=== PATIENT | female | born 1950 | race Caucasian/White ===

== ENCOUNTER → 2023-08-01 | Outpatient (CLI) | payer MEDICARE, SELFPAY ==
--- NOTE | 2023-08-01 13:52 | BI_ITS ---
MAMMOGRAPHY - UNILATERAL DIAGNOSTIC: LEFT BREAST REASON FOR EXAM: Female, 73 years old. Abnormal screening mammogram. 6 month follow-up examination. PERTINENT HISTORY: Aunt with breast cancer. TECHNIQUE: Digital unilateral breast jaylan (3D mammographic acquisition) in the CC and MLO projections. 2-D mediolateral oblique (MLO) and craniocaudad (CC) views of both breasts were obtained. CAD: Full Field Digital Mammography with Computer Added Detection was performed. COMPARISON: Comparison is made with prior outside examination of November 17, 2022. FINDINGS: Breast Composition: The breasts are heterogeneously dense, which may obscure small masses. There are no dominant masses or suspicious calcifications. No other significant abnormalities are identified. There has been no significant change since the prior study. BI/DIAG MAMM W/CAD, UNILAT IMPRESSION: Stable unilateral diagnostic mammogram. One year follow-up mammogram recommended. (A) ASSESSMENT CATEGORY: BIRADS Category 1: Negative. A letter regarding these results will be sent to the patient by the facility within 30 days. Approximately 10% of breast cancers are not detected by mammography. A normal mammogram should not delay biopsy of a clinically suspicious abnormality. Electronically Signed: Naman Zamora MD at 15:24 EDT ,
--- NOTE | 2023-08-01 13:52 | US_ITS ---
STUDY: ULTRASOUND BREAST - LEFT REASON FOR EXAM: Female, 73 years old. Six-month follow-up examination. TECHNIQUE: Axial and longitudinal images of the LEFT breast were performed with a high resolution ultrasound transducer. # OF IMAGES: 50 COMPARISON: Comparison is made with prior mammogram done earlier today. FINDINGS: LEFT Breast: The medial half of the left breast was examined with ultrasound. There is a 6 mm x 6 mm x 3 mm benign appearing lymph node in the retroareolar region at the 9:00 position of the breast at 1 cm from the nipple. US/Breast Limited Unilateral IMPRESSION: Findings in keeping with a 6 mm x 6 mm x 3 mm benign-appearing lymph node at the 9:00 position of the breast at 1 cm from the nipple. ASSESSMENT CATEGORY: BIRADS Category 2: Benign. A letter regarding these results will be sent to the patient by the facility within 30 days. Electronically Signed: Naman Zamora MD at 9:15 EDT ,
== END | disposition home or self-care (01) ==
PROVIDERS: PCP Family Medicine; Referring Provider Family Medicine; Visit Provider Family Medicine
DX: R92.8 Other abnormal and inconclusive findings on diagnostic imaging of breast (principal)
CPT/HCPCS: 76642; 77061; 77065; G0279

== ENCOUNTER 2024-07-15 15:37 | Observation (INO) | payer MEDICARE, OTHER, SELFPAY ==
[2024-07-15] VITALS (12 sets, daily range): BP systolic 94–160; BP diastolic 70–103; PULSE 66–85; RESP 15–20; TEMP 35.8–35.9; O2SAT 97–100; BMI 20.7; BMI 21.1
--- NOTE | 2024-07-15 15:42 | RAD_ITS ---
PROCEDURE: CHEST 1 VIEW (PORTABLE) 07/15/2024 REASON FOR EXAM: STROKE TECHNIQUE: Frontal view of the chest. FINDINGS: Hardware: Heart: Cardiac and mediastinal contours are stable. Lungs: The lungs are clear. Bones: The bones are unremarkable. Other: RAD/Chest 1 View (Portable) IMPRESSION: No Acute Findings. Reading Location: [id number]
--- NOTE | 2024-07-15 15:42 | EKG12_ITS ---
Test Reason : ES/UG Blood Pressure : */* mmHG Vent. Rate : 73 BPM Atrial Rate : 73 BPM P-R Int : 124 ms QRS Dur : 66 ms QT Int : 390 ms P-R-T Axes : 13 -17 10 degrees QTcB Int : 429 ms Sinus rhythm with Premature atrial complexes with Aberrant conduction Otherwise normal ECG Confirmed by MONI MCDANIELS, LASHELL ([id number]), copy editor TYSON LEO ([id number]) on 07/16/2024 1:33:13 PM Referred By: Confirmed By: LASHELL MONTENEGRO MD
[2024-07-15 15:59] LABS: Absolute Lymphocyte Count 1.31 X10^3/uL (0.83-4.51); Absolute Neutrophil Count 4.5 X10^3/uL (2.0-7.7); Basophil# 0.02 X10^3/uL; Basophil% 0.3 % (0-1); Eosinophil# 0.09 X10^3/uL; Eosinophils% 1.4 % (0-5); Hematocrit 40.1 % (37-47); Hemoglobin 13.2 g/dL (12.0-15.0); Lymphocyte # 1.31 X10^3/ul (0.83-4.51); Lymphocyte % 20.3 % (19-41); Mean Corp Hgb Conc 32.9 g/dL (32-36); Mean Corpuscular Hgb 26.2 pg (27.0-32.0); Mean Corpuscular Volume 79.6 fL (81-99); Mean Platelet Vol. 10.6 fl (6.2-12.0); Monocyte# 0.56 X10^3/uL; Monocyte% 8.7 % (0-10); NRBC Flagged by Analyzer 0 % (0-5); Neutrophil # 4.46 X10^3/uL (2.7-7.7); Neutrophil % 69.1 % (47-70); Platelet Count 244 K/mm3 (150-450); RBC Distribution Width CV 15.3 % (11.6-14.6); RBC Distribution Width SD 43.8 fl (35.1-43.9); Red Blood Count 5.04 M/mm3 (4.2-5.4); White Blood Count 6.5 K/mm3 (4.4-11.0)
[2024-07-15 16:17] LABS: Anion Gap 11 (5-15); BUN 16 mg/dL (4-19); BUN/Creat Ratio 18.9 RATIO (10-20); Calcium,Total 9.8 mg/dL (7.6-11.0); Carbon Dioxide 24.1 mmol/L (21.0-32.0); Chloride 99 mmol/L (98-108); Creatinine, Serum 0.86 mg/dL (0.70-1.20); EST Glomerular Filtration Rate 70 (>60); Estimated Creatinine Clearance 49.81 ml/min (50-250); Glucose 175 mg/dL (70-99); Potassium 4.4 mmol/L (3.3-5.1); Sodium Level 134 mmol/L (133-145)
[2024-07-15 16:21] LABS: Prothrombin Time (Protime)PT. 12.9 SECONDS (11.7-14.9)
--- NOTE | 2024-07-15 17:46 | EX.ED.DYSGE1 ---
HPI History of Present Illness Chief Complaint: Dizziness PFSH PFSH Allergy/AdvReac Type Severity Reaction Status Date / Time lincomycin Allergy Severe Anaphylaxis Verified 07/15/24 15:42 sulfamethoxazole (From Allergy Severe Swelling Verified 07/15/24 15:42 Bactrim) trimethoprim (From Bactrim) Allergy Severe Swelling Verified 07/15/24 15:42 iodine Allergy Intermediate Hives Verified 07/15/24 15:42 morphine AdvReac Other Verified 07/15/24 15:42 Social History Smoking Status: Never smoker EXAM Physical Exam Const Vital Signs: 07/15/24 15:37 07/15/24 17:31 07/15/24 17:33 Temperature 96.4 F L Temperature Source Temporal Pulse Rate 66 85 Respiratory Rate 16 Blood Pressure 127/76 H 94/84 H Blood Pressure Mean 93 87 Pulse Ox 99 Oxygen Delivery Method Room Air Room Air MDM MDM Lab Data Attestation: I reviewed the patient's lab results. Lab results narrative: CBC is remarkable for microcytic indices. Coags normal. Electrolyte panel is remarkable glucose of 175 with a normal CO2 2 and anion gap. Labs: Laboratory Results - last 24 hr 07/15/24 15:45 WBC 6.5 RBC 5.04 Hgb 13.2 Hct 40.1 MCV 79.6 L MCH 26.2 L MCHC 32.9 RDW Std Deviation 43.8 RDW Coeff of Haydee 15.3 H Plt Count 244 MPV 10.6 Immature Gran % (Auto) 0.200 Neut % (Auto) 69.1 Lymph % (Auto) 20.3 Graham % (Auto) 8.7 Eos % (Auto) 1.4 Baso % (Auto) 0.3 Absolute Neuts (auto) 4.5 Absolute Lymphs (auto) 1.31 Nucleated RBC % 0 PT 12.9 INR 1.0 APTT 23.0 L Sodium 134 Potassium 4.4 Chloride 99 Carbon Dioxide 24.1 Anion Gap 11 BUN 16 Creatinine 0.86 Estim Creat Clear Calc 49.81 L Est GFR (MDRD) Non-Af 70 BUN/Creatinine Ratio 18.9 Glucose 175 H Calcium 9.8 Radiography Chest X-Ray - ED: 1 View, Read by ED Physician (Independent review interpreted by me at 1744.), Normal, Heart, Lungs, Mediastinum, Bony Structures and No Acute Disease Discharge Plan Triage Chief Complaint: Dizziness ED Provider: Ortiz,Jules Dx/Rx/DC Orders Primary Care Provider: Elier Lindsey Referrals: Elier Lindsey MD [Primary Care Provider] - Print Language: Citizen Of [place]
--- NOTE | 2024-07-15 17:59 | CT_ITS ---
PROCEDURE: STROKE CTA HEAD AND NECK W/CON 07/15/2024 REASON FOR EXAM: NEURO DEFICIT, ACUTE, STROKE SUSPECTED TECHNIQUE: CTA imaging of the head and neck from the aortic arch to the skull vertex with out contrast and with intravenous contrast. Multiplanar and multisequence images were obtained. 3D post processing with reformations, Maximum intensity projection (MIPs) Volume rendering and Shaded surface rendering was provided. CONTRAST: Omnipaque 350 VOLUME: 100 mL Not Provided Gauge IV One or more dose reduction techniques were used (e.g., Automated exposure control, adjustment of the mA and/or kV according to patient size, use of iterative reconstruction technique). COMPARISON: None FINDINGS: Aortic Arch: Normal size and branching pattern. No significant atherosclerotic plaque. Brachiocephalic and Subclavians: Mild atherosclerotic plaque without significant stenosis. RIGHT Carotid: Right CCA: Unremarkable. Right ICA: Mild calcified and soft plaque. Maximum stenosis (NASCET): 0 % Right ECA: Unremarkable. LEFT Carotid: Left CCA: Unremarkable. Left ICA: Mild calcified and soft plaque. Maximum stenosis (NASCET): 0 % Left ECA: Mild calcified and soft plaque. Vertebrals: Codominant. Arise from the subclavians. Both vertebrals form the basilar. RIGHT Vertebral: Fenestration of the distal V2.. LEFT Vertebral: Unremarkable. Anatomy: [place] anatomy is normal. Aneurysm or avm: No intracranial aneurysms or large vascular malformations are identified. Anterior cerebral arteries: Unremarkable: Middle cerebral arteries: Unremarkable. Basilar artery: Unremarkable. Posterior cerebral arteries: Unremarkable. Other major branches of the posterior circulation: Unremarkable. Major venous structures: Unremarkable. Other findings: Neck: No lymphadenopathy. Lungs: Lung apices are clear. Bones: Degenerative changes of the lumbar spine. CT/STROKE CTA Head AND Neck W/Con IMPRESSION: Scattered atherosclerotic calcification without high-grade canal stenosis or ne ural foraminal narrowing. Reading Location: [facility]
--- NOTE | 2024-07-15 17:59 | CT_ITS ---
PROCEDURE: STROKE BRAIN/HEAD WITHOUT CONT 07/15/2024 REASON FOR EXAM: NEURO DEFICIT, ACUTE, STROKE SUSPECTED TECHNIQUE: Head CT without intravenous contrast. Coronal and Sagittal reconstruction series were provided. One or more dose reduction techniques were used (e.g., Automated exposure control, adjustment of the mA and/or kV according to patient size, use of iterative reconstruction technique. COMPARISON: None FINDINGS: No acute intracranial hemorrhage, mass, mass effect, midline shift or pathologic extra-axial fluid collection. Mild parenchymal atrophy with commensurate increase in CSF containing spaces. Bilateral basal ganglia mineralization, likely age related. 1 Patchy white matter hypodensities, patient demographics favor chronic microvascular ischemic changes. Paranasal sinuses and mastoid air cells are clear. The calvarium is grossly intact. CT/STROKE Brain/Head without Cont IMPRESSION: No acute intracranial abnormality; no acute infarct, intracranial hemorrhage or extra-axial collection. Chronic microvascular ischemia and involutional changes. Reading Location: [facility]
--- NOTE | 2024-07-15 18:02 | ED.VIS.STROK ---
HPI History of Present Illness Chief Complaint: Dizziness Detail of Chief Complaint: Balance off, walking into the [place] and bilateral blurred vision Informant: patient and spouse/S.O. Onset/Context/Timing Onset: Today (714) Context: Sudden Onset Timing: Continuous Quality and Location: Positive for Difficulty with Ambulation Onset: 714 Current Severity: Mild Maximum Severity: Severe Worsened by: Nothing Relieved by: Still present Associated Symptoms Associated Symptoms: Positive for Headache (Occipital and neck) and Nausea; Negative for Vomiting or Chest Pain Narrative Narrative: Patient is a 74-year-old woman with history of type 2 diabetes for many years and COVID, states since she looks to the left she has double vision. She states she got out of bed this morning. She had no symptoms. She was walking down the [place] and was having difficulty and was walking into the [place]. She attempted to sit down and read and could not and stopped because of blurred vision. She denied double vision. There is no trouble with speech or swallowing. She denied paresthesia, anesthesia or motor weakness. Triage note was reviewed. She states her heart rate is normally low. She answered low heart rate when I asked her about her blood pressure. Patient apparently was confused and uncertain whether she was really hypotensive or not. states he had to help her walk because she was still having difficulty when they arrived. She states her symptoms have gotten better. She still complaining of occipital headache. Prior similar symptoms: No Recent Illness/Hospitalization: No [facility] Medical History CKD (chronic kidney disease), stage II HLD (hyperlipidemia) HTN (hypertension) Glaucoma Type 2 diabetes mellitus with hyperglycemia Home Medications ?Medication ?Instructions ?Recorded ?Last Taken ?Type calcium 600 mg (as 2 tab PO DAILY 07/15/24 Unknown History carbonate)-vitamin D3 5 mcg (200 unit) tablet (Calcium 600 + D(3)) cholecalciferol (vitamin D3) 50 50 mcg PO DAILY 07/15/24 Unknown History mcg (2,000 unit) tablet (D3 DOTS) empagliflozin 10 mg tablet 10 mg PO DAILY 07/15/24 Unknown History (Jardiance) green tea leaf extract 500 mg 400 mg PO DAILY 07/15/24 Unknown History capsule lisinopril 5 mg tablet 5 mg PO DAILY 07/15/24 Unknown History magnesium oxide 400 mg (241.3 mg 400 mg PO DAILY 07/15/24 Unknown History magnesium) tablet (MagOx) mecobalamin (vitamin B12) 1,000 1,000 mcg PO DAILY 07/15/24 Unknown History mcg chewable tablet metformin 850 mg tablet 850 mg PO Q12H 07/15/24 Unknown History omega 4-iyn-teh-fish oil 300 1 cap PO DAILY 07/15/24 Unknown History mg-1,000 mg capsule (Fish Oil) pyridoxine (vitamin B6) 100 mg 100 mg PO DAILY 07/15/24 Unknown History tablet (Vitamin B-6) simvastatin 20 mg tablet 20 mg PO QHS 07/15/24 Unknown History thiamine HCl (vitamin B1) 250 mg 250 mg PO DAILY 07/15/24 Unknown History tablet (Vitamin B-1) timolol maleate 0.5 % eye drops 1 drp LEFT EYE Q12H 07/15/24 Unknown History zinc gluconate 50 mg tablet 50 mg PO DAILY 07/15/24 Unknown History Allergy/AdvReac Type Severity Reaction Status Date / Time lincomycin Allergy Severe Anaphylaxis Verified 07/15/24 15:42 sulfamethoxazole (From Allergy Severe Swelling Verified 07/15/24 15:42 Bactrim) trimethoprim (From Bactrim) Allergy Severe Swelling Verified 07/15/24 15:42 iodine Allergy Intermediate Hives Verified 07/15/24 15:42 morphine AdvReac Other Verified 07/15/24 15:42 Family History no significant family his Social History household members: spouse Smoking Status: Never smoker ROS ROS ED Constitutional Constitutional ED: Denies chills, fever(s), subjective or sweats Eyes Eyes: Reports blurry vision bilateral; Denies diplopia ENT ENT ED: Denies ear pain, rhinorrhea or sore throat Cardiovascular Cardiovascular: Denies chest pain or palpitations Respiratory/Chest Respiratory/Chest: Denies cough, dyspnea or dyspnea on exertion Gastrointestinal Gastrointestinal: Denies abdominal pain, nausea or vomiting Genitourinary Genitourinary ED: Denies dysuria, hematuria or urinary frequency Musculoskeletal Musculoskeletal: Denies arthralgias, back pain or myalgias Integumentary Denies rash Neurologic Neurologic: Denies headache(s) or weakness Psychiatric Psychiatric: Denies anxiety or depression Endocrine Endocrinology: Denies polydipsia or polyphagia Hematologic/Lymphatic Hematologic/Lymphatic: Denies easy bleeding or easy bruising EXAM Physical Exam Const Vital Signs: 07/15/24 15:37 07/15/24 17:31 07/15/24 17:33 Temperature 96.4 F L Temperature Source Temporal Pulse Rate 66 85 Respiratory Rate 16 Blood Pressure 127/76 H 94/84 H Blood Pressure Mean 93 87 Pulse Ox 99 Oxygen Delivery Method Room Air Room Air 07/15/24 17:59 07/15/24 17:59 07/15/24 18:28 Temperature Temperature Source Pulse Rate 83 80 Respiratory Rate 15 Blood Pressure 120/88 H 138/81 H Blood Pressure Mean 98 100 Pulse Ox 100 99 Oxygen Delivery Method Room Air Room Air Room Air 07/15/24 19:00 07/15/24 19:00 07/15/24 19:30 Temperature Temperature Source Pulse Rate 76 80 Respiratory Rate 16 20 H Blood Pressure 113/103 H 132/76 H Blood Pressure Mean 106 94 Pulse Ox 99 98 Oxygen Delivery Method Room Air Room Air 07/15/24 20:00 07/15/24 20:30 Temperature Temperature Source Pulse Rate 73 74 Respiratory Rate Blood Pressure 160/78 H 160/78 H Blood Pressure Mean 105 105 Pulse Ox 97 Oxygen Delivery Method Positive well nourished and well developed Constitutional Narrative: She appears in no distress. Initial blood pressure was normal. Repeat blood pressure at 1733 was low. Patient has no meningeal findings. General Appearance ED: well developed HEENT Reports moist mucous membranes atraumatic Eyes PERRL and EOMs intact bilaterally Eyes Narrative: There is no nystagmus noted. There is no visual field cut. General Eye ED: Negative for pale conjunctiva or scleral icterus Neck no lymphadenopathy, supple and no JVD Chest Wall inspection of chest normal and palpation of chest normal Resp normal respiratory effort and clear to auscultation bilaterally Cardio no murmurs GI normal to inspection, nondistended, normoactive bowel sounds, soft to palpation, non-tender, non-distended and no masses Back/Spine no CVA tenderness Extremity normal to inspection General Extremety ED: Negative for deformity or edema General Extremity: Negative for deformity or edema Neuro oriented x3 and CN's II-XII intact bilaterally Shelby Coma Scale: document GCS findings Spontaneous Obeys Commands Oriented 15 Sensorium / Orientation: alert Speech: speech normal Motor Exam: strength 5/5 throughout Psych mental status grossly normal Skin no wounds General Skin Exam: Negative for jaundice Lesions: no lesions Rashes: no rashes MDM MDM MDM Narrative Medical decision making narrative: Differential diagnosis would be subarachnoid hemorrhage, ischemic stroke, vertebrobasilar insufficiency, atypical migraine. Stroke team was called in light of her difficulty walking and change in vision which would be consistent with a posterior circulatory issue. Will have nurses check her blood sugar since she is diabetic. This is to rule out hypoglycemia. Lab Data Attestation: I reviewed the patient's lab results. Lab results narrative: CBC is remarkable microcytic indices. Electrolyte panel is unremarkable. Troponin is normal. Glucose is 122. Labs: Laboratory Results - last 24 hr 07/15/24 07/15/24 07/15/24 15:45 18:16 18:20 WBC 6.5 8.2 RBC 5.04 5.13 Hgb 13.2 13.4 Hct 40.1 40.7 MCV 79.6 L 79.3 L MCH 26.2 L 26.1 L MCHC 32.9 32.9 RDW Std Deviation 43.8 43.5 RDW Coeff of Haydee 15.3 H 15.1 H Plt Count 244 256 MPV 10.6 10.5 Immature Gran % (Auto) 0.200 0.400 Neut % (Auto) 69.1 77.7 H Lymph % (Auto) 20.3 14.9 L [place] % (Auto) 8.7 6.2 Eos % (Auto) 1.4 0.6 Baso % (Auto) 0.3 0.2 Absolute Neuts (auto) 4.5 6.3 Absolute Lymphs (auto) 1.31 1.22 Nucleated RBC % 0 0 PT 12.9 12.8 INR 1.0 0.9 APTT 23.0 L 22.3 L Sodium 134 136 Potassium 4.4 4.5 Chloride 99 101 Carbon Dioxide 24.1 23.2 Anion Gap 11 11 BUN 16 16 Creatinine 0.86 0.83 Estim Creat Clear Calc 49.81 L 51.61 Est GFR (MDRD) Non-Af 70 73 BUN/Creatinine Ratio 18.9 19.8 Glucose 175 H 129 H Calcium 9.8 10.1 Troponin T High Sens < 6 Troponin T Hi Sens 2 Hr POC Glucose 122 H 07/15/24 20:25 WBC RBC Hgb Hct MCV MCH MCHC RDW Std Deviation RDW Coeff of Haydee Plt Count MPV Immature Gran % (Auto) Neut % (Auto) Lymph % (Auto) [place] % (Auto) Eos % (Auto) Baso % (Auto) Absolute Neuts (auto) Absolute Lymphs (auto) Nucleated RBC % PT INR APTT Sodium Potassium Chloride Carbon Dioxide Anion Gap BUN Creatinine Estim Creat Clear Calc Est GFR (MDRD) Non-Af BUN/Creatinine Ratio Glucose Calcium Troponin T High Sens Troponin T Hi Sens 2 Hr < 6 POC Glucose Radiography Chest X-Ray - ED: 1 View, Read by ED Physician (Interpreted by me at 1710), Normal, Heart, Lungs, Mediastinum, Bony Structures and No Acute Disease Diagnostic Testing: Clinical Impression(s) from Imaging Studies Chest X-Ray 07/15/24 15:42 IMPRESSION: No Acute Findings. Reading Location: [facility] Brain CT 07/15/24 17:59 IMPRESSION: No acute intracranial abnormality; no acute infarct, intracranial hemorrhage or extra-axial collection. Chronic microvascular ischemia and involutional changes. Reading Location: [facility] Head/Neck CTA 07/15/24 17:59 IMPRESSION: Scattered atherosclerotic calcification without high-grade canal stenosis or neural foraminal narrowing. Reading Location: [facility] CT of the head and neck reveals no high-grade canal stenosis. There is scattered atherosclerotic calcifications noted. EKG Initial EKG: Attestation: I personally reviewed and interpreted this EKG as follows: Interpretation: Sinus Rhythm (Rate is 73. OR interval is under 24 ms. History 6 6 ms. QT durations are 90 ms. Kinta is normal. There are premature atrial beats noted.) Management Discussion w/another healthcare provider: Hospitalist (Dr. Montes De Oca was paged for admission to PCU for central vertigo.), Gyn Physician (Spoke to Dr. Phan the [facility] neurologist. He agrees this is consistent with central vertigo and needs a stroke workup. By the time he completed his exam she was symptom-free.) and Radiologist Discharge Plan Dx/Rx/DC Orders Clinical Impression: Vertigo of central origin, Type 2 diabetes mellitus with hyperglycemia, Glaucoma, Blurred vision, bilateral, Brain TIA Disposition Disposition: Acute Care Hospital [facility] [place] NIHSS NIHSS 1a. Level of Consciousness: 0 - Alert; keenly responsive 1b. LOC Questions: 0 - Answers BOTH questions correctly 1c. LOC Commands: 0 - Performs BOTH tasks correctly 2. Best Gaze: 0 - Normal 3. Visual: 0 - No visual loss 4. Facial Palsy: 0 - Normal symmetrical movements 5a. Left Arm: 0 - No drift; arm holds 90 (or 45) degrees for full 10 seconds 5b. Right Arm: 0 - No drift; arm holds 90 (or 45) degrees for full 10 seconds 6a. Left Le - No drift; leg holds 30-degree position for full 5 seconds 6b. Right Le - No drift; leg holds 30-degree position for full 5 seconds 7. Limb Ataxia: 0 - Absent 8. Sensory: 0 - Normal; no sensory loss 9. Best Language: 0 - No aphasia; normal 10. Dysarthria: 0 - Normal 11. Extinction and Inattention: 0 - No abnormality Total: 0 Stroke Questions Stroke Team Activated: Yes Reviewed Inclusion/Exclusion criteria: Yes IV Thrombolytic Administered: No No contraindications from thrombolytic administration: No
[2024-07-15 18:31] LABS: Absolute Lymphocyte Count 1.22 X10^3/uL (0.83-4.51); Absolute Neutrophil Count 6.3 X10^3/uL (2.0-7.7); Basophil# 0.02 X10^3/uL; Basophil% 0.2 % (0-1); Eosinophil# 0.05 X10^3/uL; Eosinophils% 0.6 % (0-5); Hematocrit 40.7 % (37-47); Hemoglobin 13.4 g/dL (12.0-15.0); Lymphocyte # 1.22 X10^3/ul (0.83-4.51); Lymphocyte % 14.9 % (19-41); Mean Corp Hgb Conc 32.9 g/dL (32-36); Mean Corpuscular Hgb 26.1 pg (27.0-32.0); Mean Corpuscular Volume 79.3 fL (81-99); Mean Platelet Vol. 10.5 fl (6.2-12.0); Monocyte# 0.51 X10^3/uL; Monocyte% 6.2 % (0-10); NRBC Flagged by Analyzer 0 % (0-5); Neutrophil # 6.34 X10^3/uL (2.7-7.7); Neutrophil % 77.7 % (47-70); Platelet Count 256 K/mm3 (150-450); RBC Distribution Width CV 15.1 % (11.6-14.6); RBC Distribution Width SD 43.5 fl (35.1-43.9); Red Blood Count 5.13 M/mm3 (4.2-5.4); White Blood Count 8.2 K/mm3 (4.4-11.0)
[2024-07-15 18:38] LABS: Bedside Glucose 122 mg/dL (74-106)
[2024-07-15] MEDS: DiphenhydrAMINE 50 MG/ML Syringe IV (18:38)
[2024-07-15 18:39] LABS: International Normalized Ratio 0.9; Prothrombin Time (Protime)PT. 12.8 SECONDS (11.7-14.9)
[2024-07-15 18:40] LABS: Partial Thromboplast Time 22.3 Seconds (24.1-36.2)
[2024-07-15 18:52] LABS: Anion Gap 11 (5-15); BUN 16 mg/dL (4-19); BUN/Creat Ratio 19.8 RATIO (10-20); Calcium,Total 10.1 mg/dL (7.6-11.0); Carbon Dioxide 23.2 mmol/L (21.0-32.0); Chloride 101 mmol/L (98-108); Creatinine, Serum 0.83 mg/dL (0.70-1.20); EST Glomerular Filtration Rate 73 (>60); Estimated Creatinine Clearance 51.61 ml/min (50-250); Glucose 129 mg/dL (70-99); Potassium 4.5 mmol/L (3.3-5.1); Sodium Level 136 mmol/L (133-145); Troponin T High Sensitivity < 6 ng/L (<=14)
--- NOTE | 2024-07-15 20:55 | PCM.HP.STD ---
HPI - General General Date of Admission: 07/15/24 Date of Service: 07/15/24 Chief Complaint: Dizziness, vertigo, blurred vision, double vision, headache. HPI Narrative The patient is a 74 y/o F w/ PMHx: Hx cervical cancer, CKD stage II per GFR trending but uncertain as no marked comparison labs available, HLD, Diabetes mellitus type II, Glaucoma unclear type who presents to the [facility] ED on 07/15/24 with history of onset dizziness with some description consistent with vertigo/room spinning sensation, sensation of being off balance with bilateral blurry vision with aching and very difficult to ambulate with onset at approximately 7:15 in the morning with occipital and neck focal headache with associated nausea without emesis reporting that specifically when she turns to the left she has onset of double vision prompting eventual ED evaluation to be cautious. did report that she seemed mildly confused initially but improved during ED evaluation. In the ED she continued to complain of an occipital headache. Initially stroke team alert was called however given her difficulty walking and change in vision or concern for posterior circulatory issue thus this was canceled per ED. upon evaluation in the ED per hospitalist physician headache has resolved. She does state that when she was getting up from the bedside commode in the ED she still did have the sensation of being off balance but did not feel that she was falling toward 1 side or the other. She denies ever having had vertigo before. Workup in the ED included T96.4 Temporal, heart rate 66, BP 127/76, respiratory rate 16, 99% on room air with most recent repeat vitals heart 76, BP 113/103, respiratory rate 16, 99% on room air, CBC with WBC 8.2, he 1 13.4, MCV 79.3, platelet 256 without marked shift, unremarkable coags aside PT T22.3, BMP with glucose 129 otherwise not marked appearing, BUN/creatinine 16/0.83, GFR 73, troponin 6, chest x-ray with no acute cardiopulmonary findings, CT of the brain with chronic microvascular ischemic involutional changes with no acute intracranial findings, EKG with sinus rhythm with no acute evidence of ischemia, CTA head and neck with scattered atherosclerotic calcification without high-grade canal stenosis or neural foraminal narrowing. In the ED given iodine allergy patient administered Solu-Medrol 40 mg IV x 1, diphenhydramine 50 mg IV x 1 and low-dose maintenance IV fluids. [facility] Medical History (Updated 07/15/24 @ 21:[address] Laura Montes De Oca MD) History of cervical cancer CKD (chronic kidney disease), stage II HLD (hyperlipidemia) Glaucoma Type 2 diabetes mellitus with hyperglycemia Home Medications ?Medication ?Instructions ?Recorded ?Last Taken ?Type calcium 600 mg (as 2 tab PO DAILY 07/15/24 Unknown History carbonate)-vitamin D3 5 mcg (200 unit) tablet (Calcium 600 + D(3)) cholecalciferol (vitamin D3) 50 50 mcg PO DAILY 07/15/24 Unknown History mcg (2,000 unit) tablet (D3 DOTS) empagliflozin 10 mg tablet 10 mg PO DAILY 07/15/24 Unknown History (Jardiance) green tea leaf extract 500 mg 400 mg PO DAILY 07/15/24 Unknown History capsule lisinopril 5 mg tablet 5 mg PO DAILY 07/15/24 Unknown History magnesium oxide 400 mg (241.3 mg 400 mg PO DAILY 07/15/24 Unknown History magnesium) tablet (MagOx) mecobalamin (vitamin B12) 1,000 1,000 mcg PO DAILY 07/15/24 Unknown History mcg chewable tablet metformin 850 mg tablet 850 mg PO Q12H 07/15/24 Unknown History omega 5-nay-zhm-fish oil 300 1 cap PO DAILY 07/15/24 Unknown History mg-1,000 mg capsule (Fish Oil) pyridoxine (vitamin B6) 100 mg 100 mg PO DAILY 07/15/24 Unknown History tablet (Vitamin B-6) simvastatin 20 mg tablet 20 mg PO QHS 07/15/24 Unknown History thiamine HCl (vitamin B1) 250 mg 250 mg PO DAILY 07/15/24 Unknown History tablet (Vitamin B-1) timolol maleate 0.5 % eye drops 1 drp LEFT EYE Q12H 07/15/24 Unknown History zinc gluconate 50 mg tablet 50 mg PO DAILY 07/15/24 Unknown History Allergy/AdvReac Type Severity Reaction Status Date / Time lincomycin Allergy Severe Anaphylaxis Verified 07/15/24 15:42 sulfamethoxazole (From Allergy Severe Swelling Verified 07/15/24 15:42 Bactrim) trimethoprim (From Bactrim) Allergy Severe Swelling Verified 07/15/24 15:42 iodine Allergy Intermediate Hives Verified 07/15/24 15:42 morphine AdvReac Other Verified 07/15/24 15:42 Family History (Updated 07/15/24 @ 21:[address] Laura Montes De Oca MD) Father CAD (coronary artery disease) Heart disease Hypertension Myocardial infarction Mother Lewy body dementia CVA (cerebral vascular accident) Glaucoma Family History no significant family his Surgical History (Updated 07/15/24 @ 21:[address] Laura Montes De Oca MD) History of eye surgery History of total left hip replacement History of arthroscopy of right knee History of total abdominal hysterectomy and bilateral salpingo-oophorectomy History of tonsillectomy and adenoidectomy Social History (Updated 07/15/24 @ 21:[address] Laura Montes De Oca MD) household members: spouse Smoking Status: Never smoker alcohol intake: never substance use type: does not use ROS ROS Narrative Admission Review of Systems: CONSTITUTIONAL: No weight loss, fever, chills, + weakness or fatigue. HEENT: + Dizziness/vertigo, occipital and neck headache with nausea without emesis, blurred vision, double vision with left direct gaze. Eyes: No visual loss, yellow sclerae. Ears, Nose, Throat: No hearing loss, sneezing, congestion, runny nose or sore throat. SKIN: No rash or itching, lesions, wounds. CARDIOVASCULAR: No chest pain, chest pressure or chest discomfort, palpitations, edema, orthopnea, syncopal events. RESPIRATORY: No shortness of breath, cough or sputum, wheezing, hemoptysis. GASTROINTESTINAL: + anorexia, nausea. No vomiting or diarrhea, abdominal pain, melena, BRBPR. GENITOURINARY: No dysuria, frequency, urgency or retention. NEUROLOGICAL: + Dizziness/vertigo, occipital and neck headache with nausea without emesis, blurred vision, double vision with left direct gaze. No syncope, paralysis, ataxia, numbness or tingling in the extremities, focal weakness, change in bowel or bladder control, seizure. MUSCULOSKELETAL: + muscle, back pain, joint pain or stiffness. HEMATOLOGIC: No anemia, bleeding or bruising. LYMPHATICS: No enlarged nodes. No history of splenectomy. PSYCHIATRIC: No history of depression or anxiety. ENDOCRINOLOGIC: No reports of sweating, cold or heat intolerance. No polyuria or polydipsia. ALLERGIES: + History of anaphylaxis, hives. Vital Signs Vital Signs Vital Signs: 07/15/24 15:37 07/15/24 17:31 07/15/24 17:33 Temperature 96.4 F L Temperature Source Temporal Pulse Rate 66 85 Respiratory Rate 16 Blood Pressure 127/76 H 94/84 H Blood Pressure Mean 93 87 Pulse Ox 99 Oxygen Delivery Method Room Air Room Air 07/15/24 17:59 07/15/24 17:59 07/15/24 18:28 Temperature Temperature Source Pulse Rate 83 80 Respiratory Rate 15 Blood Pressure 120/88 H 138/81 H Blood Pressure Mean 98 100 Pulse Ox 100 99 Oxygen Delivery Method Room Air Room Air Room Air 07/15/24 19:00 07/15/24 19:00 07/15/24 19:30 Temperature Temperature Source Pulse Rate 76 80 Respiratory Rate 16 20 H Blood Pressure 113/103 H 132/76 H Blood Pressure Mean 106 94 Pulse Ox 99 98 Oxygen Delivery Method Room Air Room Air 07/15/24 20:00 07/15/24 20:30 Temperature Temperature Source Pulse Rate 73 74 Respiratory Rate Blood Pressure 160/78 H 160/78 H Blood Pressure Mean 105 105 Pulse Ox 97 Oxygen Delivery Method Weight Weight: 125 lb Body Mass Index (BMI) 20.7 Physical Exam Narrative Physical Examination: General: Awake, alert, oriented x 3 and cooperative, seated upright in the ED bed in no apparent distress. Skin: Normal color, normal turgor, no icterus, no cyanosis. HEENT: AT/NC, EOMI, PERRLA, mildly dry MM, no carotid bruits or JVD noted. Lungs: CTA bilaterally, moderate effort, mild decrease BL bases, no rales, ronchi or wheezing. Heart: Regular rate and rhythm; no gallop, rub audible. Abdomen: Soft, NTTP, ND, normal BS, no appreciated HSM. Extremities: No cyanosis, clubbing, or edema. Neurological: Patient awake, alert, oriented as noted, cognitive function intact; pupils equally reactive to light and accommodation, cranial nerves II-XII grossly normal, sensation intact, finger-nose and [id number] appropriate, equivocal Babinski, moving all 4 extremities, no focal deficits, strength preserved when at rest however she does report that she still felt off balance when she was getting off the commode back into the ED bed, no evidence of any nystagmus and no current blurred vision or vision deficits. Psychiatric: Affect appears fatigued otherwise normal, no acute evidence of depressive or anxiety feelings. Results Lab / Micro Data 07/15/24 18:20 07/15/24 18:20 Labs: Laboratory Results - last 24 hr 07/15/24 15:45: WBC 6.5, RBC 5.04, Hgb 13.2, Hct 40.1, MCV 79.6 L, MCH 26.2 L, MCHC 32.9, RDW Std Deviation 43.8, RDW Coeff of Haydee 15.3 H, Plt Count 244, MPV 10.6, Immature Gran % (Auto) 0.200, Neut % (Auto) 69.1, Lymph % (Auto) 20.3, Grand % (Auto) 8.7, Eos % (Auto) 1.4, Baso % (Auto) 0.3, Absolute Neuts (auto) 4.5, Absolute Lymphs (auto) 1.31, Nucleated RBC % 0, PT 12.9, INR 1.0, APTT 23.0 L, Sodium 134, Potassium 4.4, Chloride 99, Carbon Dioxide 24.1, Anion Gap 11, BUN 16, Creatinine 0.86, Estim Creat Clear Calc 49.81 L, Est GFR (MDRD) Non-Af 70, BUN/Creatinine Ratio 18.9, Glucose 175 H, Calcium 9.8 07/15/24 18:16: POC Glucose 122 H 07/15/24 18:20: WBC 8.2, RBC 5.13, Hgb 13.4, Hct 40.7, MCV 79.3 L, MCH 26.1 L, MCHC 32.9, RDW Std Deviation 43.5, RDW Coeff of Haydee 15.1 H, Plt Count 256, MPV 10.5, Immature Gran % (Auto) 0.400, Neut % (Auto) 77.7 H, Lymph % (Auto) 14.9 L, Grand % (Auto) 6.2, Eos % (Auto) 0.6, Baso % (Auto) 0.2, Absolute Neuts (auto) 6.3, Absolute Lymphs (auto) 1.22, Nucleated RBC % 0, PT 12.8, INR 0.9, APTT 22.3 L, Sodium 136, Potassium 4.5, Chloride 101, Carbon Dioxide 23.2, Anion Gap 11, BUN 16, Creatinine 0.83, Estim Creat Clear Calc 51.61, Est GFR (MDRD) Non-Af 73, BUN/Creatinine Ratio 19.8, Glucose 129 H, Calcium 10.1, Troponin T High Sens < 6 Imaging Radiology Impression Chest X-Ray 07/15/24 15:42 IMPRESSION: No Acute Findings. Reading Location: [facility] Brain CT 07/15/24 17:59 IMPRESSION: No acute intracranial abnormality; no acute infarct, intracranial hemorrhage or extra-axial collection. Chronic microvascular ischemia and involutional changes. Reading Location: [facility] Head/Neck CTA 07/15/24 17:59 IMPRESSION: Scattered atherosclerotic calcification without high-grade canal stenosis or neural foraminal narrowing. Reading Location: [facility] Assessment & Plan Assessment/Plan (1) Vertigo of central origin: PLAN: Plan The patient is a 74 y/o F w/ PMHx: Hx cervical cancer, CKD stage II per GFR trending but uncertain as no marked comparison labs available, HLD, Diabetes mellitus type II, Glaucoma unclear type who presents to the [facility] ED on 07/15/24 with history of onset dizziness, sensation of being off balance with bilateral blurry vision with aching and very difficult to ambulate with onset at approximately 7:15 in the morning with occipital and neck focal headache with associated nausea without emesis reporting that specifically when she turns to the left she has onset of double vision prompting eventual ED evaluation to be cautious. #1. Dizziness, blurred vision, left gaze directed double vision, headache with concern for central vertigo concerning for posterior CVA/TIA: Will admit to PCU, will obtain MRI Brain, ECHO, PT/OT/Speech/Nutrition evaluation per protocol. Will allow permissive HTN, maintain on asa, statin w/ AM FLP, fall precautions. Mag, TSH, FLP, HgbA1c requested. Maintain on fall and aspiration precautions. Neurology consulted. #2. Possible Chronic Kidney Disease Stage II per GFR trending: Admission BUN/Cr 16/0.83, GFR 73, baseline renal function unknown but repeat lab performed earlier in the day with creatinine also at that time 0.86 and GFR 70, repeat BMP in AM to help further elucidate. #3. Diabetes mellitus type II: Hold oral home regimen, hemoglobin A1c requested per stroke protocol, nutrition consulted for education and teaching per stroke protocol, ADA diet, accu checks w/ ISS. #4. Hyperlipidemia: Continue home statin regimen. AM FLP. #5. Glaucoma, unclear type: Will continue patient eyedrop regimen. #6. History cervical cancer: Diagnosed in 1972, status post total abdominal hysterectomy with bilateral salpingo-oophorectomy, no other treatment, considered in remission. #7. DVT prophylaxis: Lovenox. #8. CODE status: Patient HCPOA is her who is present and living will is currently in place. Discussed CODE status at length including difference between FULL code, DNR-CCA and DNR-CC status. Following discussions about the differences in these status, requested Full Code status. Charges/Coding Visit Charges Inpatient E&M: 24204 Init Hosp L3
[2024-07-15 20:56] LABS: Troponin T High Sens 2 HR < 6 ng/L (<=14)
--- NOTE | 2024-07-15 21:19 | CM.ED ---
Social Work Reason for visit: Stroke Alert. SW met with patients . was tearful, telling SW that they came in to the ED due to patient having an increase in symptoms while they were out running errands. SW provided emotional support. No further needs identified at this time. Seble Hoffmann, SHOP STEWARD, W[employer] P[employer]ER
--- NOTE | 2024-07-15 21:50 | ECHOD_ITS ---
Reason For Study Reason For Study: TIA/CVA Procedure This was a 2D Doppler, Color Flow transthoracic echocardiogram. Exam performed portable in patient room. Left Ventricle Normal LV size. Left ventricular systolic function is normal. The left ventricular ejection fraction is 70 %. No regional wall motion abnormalities noted. Right Ventricle Normal RV size. Normal systolic function. Atria Normal left atrium. Normal right atrium. Mitral Valve Normal mitral valve. Tricuspid Valve Normal tricuspid valve. Mild (1+) tricuspid valve insufficiency. Pulmonary artery systolic pressure is 28 mmHg. Aortic Valve Normal aortic valve. Pulmonic Valve Normal pulmonic valve. Great Vessels Normal aortic root. The pulmonary artery is normal size. Inferior vena cava collapse with respiration. Pericardium/Pleural No pericardial effusion. MMode/2D Measurements & Calculations LVIDd: 3.2 cm IVSd: 1.00 cm Ao root diam: 2.6 cm LVIDs: 2.0 cm LVPWd: 0.82 cm RVDd: 2.8 cm FS: 36.4 % LAV(MOD-bp): 28.9 ml LVAd ap4: 18.9 cm2 SV(MOD-sp4): 31.7 ml LAV(MOD-bp) Indexed: 17.7 ml/m2 LVLd ap4: 6.2 cm SI(MOD-sp4): 19.5 ml/m2 LAV(MOD-sp2): 28.3 ml EDV(MOD-sp4): 46.7 ml LAV(MOD-sp4): 29.0 ml EDV(sp4-el): 48.8 ml LVAs ap4: 9.4 cm2 LVLs ap4: 4.9 cm ESV(MOD-sp4): 15.0 ml ESV(sp4-el): 15.2 ml EF(MOD-sp4): 68.0 % EF(sp4-el): 68.8 % SV(sp4-el): 33.6 ml LA A4 area: 12.6 cm2 LA dimension(2D): 2.8 cm RA A4 area: 12.6 cm2 TAPSE: 2.2 cm Time Measurements MV dec time: 0.19 sec Doppler Measurements & Calculations MV E max joe: 65.5 cm/sec Lat Peak E' Joe: 9.0 cm/sec Med Peak E' Joe: 8.1 cm/sec MV A max joe: 74.4 cm/sec E/E' lat: 7.2 E/E' med: 8.1 MV E/A: 0.88 MV V2 max: 98.4 cm/sec MV P1/2t max joe: 98.4 cm/sec Ao V2 max: 149.6 cm/sec MV max P.9 mmHg MV P1/2t: 81.0 msec Ao max P.0 mmHg MV V2 mean: 47.4 cm/sec Ao V2 mean: 98.8 cm/sec MV mean P.1 mmHg MV dec slope: 355.5 cm/sec2 Ao mean P.5 mmHg MV V2 VTI: 32.3 cm MVA(P1/2t): 2.7 cm2 Ao V2 VTI: 35.1 cm AV (velocity ratio): 0.76 LV V1 max: 117.2 cm/sec TR max joe: 247.5 cm/sec LV V1 max P.5 mmHg TR max P.5 mmHg LV V1 mean P.6 mmHg LV V1 mean: 74.7 cm/sec LV V1 VTI: 26.7 cm ECHO/Echo Complete Interpretation Summary Normal LV size. Left ventricular systolic function is normal. The left ventricular ejection fraction is 70 %. Pulmonary artery systolic pressure is 28 mmHg. Structurally normal valves. Ordering Physician: Laura Montes De Oca Performed By: Raul Cano RCS
[2024-07-15 21:58] LABS: Magnesium 1.8 mg/dL (1.5-2.2)
[2024-07-15 22:03] LABS: Hemoglobin A1c 6.5 % (<=5.6)
[2024-07-15 22:33] LABS: Thyroid Stim Hormone (TSH) 0.983 uIU/mL (0.300-4.200)
[2024-07-15] MEDS: Aspirin 325 MG Tablet PO (22:40)
[2024-07-15] MEDS: Atorvastatin Calcium 10 MG Tablet PO (22:40)
[2024-07-15] MEDS: 0.9% Normal Saline (1000mL) 1,000 ML 100 ML IV (22:43)
[2024-07-15 22:53] LABS: Troponin T High Sens 4 HR < 6 ng/L (<=14)
[2024-07-15 23:07] LABS: Bacteria 0 SEEN /hpf (None Seen); Mucous, Urine 0 SEEN /hpf (<or=2+); Red Blood Cells-Urine 0 SEEN /hpf (0-5); Squamous Epithelial Cells - UA 0 SEEN /hpf (5-10); White Blood Cells 0 SEEN /hpf (0-5)
[2024-07-15 23:21] LABS: Bedside Glucose 156 mg/dL (74-106)
[2024-07-15 23:28] LABS: Color, Urine Yellow (Yellow); Glucose, Dipstick 1000 mg/dl (Normal); Ketone-Dipstick 15 mg/dl (Negative); Leukocyte Esterase-Dipstick Negative /ul (Negative); Nitrite-Dipstick Negative (Negative); Occult Blood-Urine Negative /ul (Negative); Protein-Dipstick Negative (Negative); Urine Bilirubin Dipstick Negative (Negative); Urine Clarity Clear (Clear); Urine Urobilinogen Normal (Normal)
[2024-07-16 01:58] VITALS: BP 125/67; PULSE 77; RESP 18; TEMP 35.9; O2SAT 96
[2024-07-16 03:15] VITALS: BMI 21.2
[2024-07-16 06:00] VITALS: BP 114/64; PULSE 70; RESP 18; TEMP 35.8; O2SAT 99
[2024-07-16] MEDS: Timolol 0.5% 5ML OPTH.BTL 1 DRP LEFT EYE (06:20)
[2024-07-16 06:26] LABS: ALB/GLOB Ratio 1.5 RATIO (0.9-2.4); AST(SGOT) 20 U/L (<=31); Alanine Aminotransfer ALT/SGPT 16 U/L (<=34); Alkaline Phosphatase 70 U/L (35-104); Anion Gap 12 (5-15); BUN 15 mg/dL (4-19); BUN/Creat Ratio 17.8 RATIO (10-20); Calcium,Total 9.5 mg/dL (7.6-11.0); Carbon Dioxide 21.6 mmol/L (21.0-32.0); Chloride 107 mmol/L (98-108); Cholesterol 143 mg/dL (<=200); Creatinine, Serum 0.85 mg/dL (0.70-1.20); EST Glomerular Filtration Rate 71 (>60); Estimated Creatinine Clearance 50.67 ml/min (50-250); Globulin 2.6 g/dL (2.2-4.2); Glucose 121 mg/dL (70-99); High Density Lipoprotein 58 mg/dL; Low Density Lipoprotein Calc. 76 mg/dL; Potassium 4.5 mmol/L (3.3-5.1); Protein, Total 6.6 g/dL (5.9-8.4); Sodium Level 140 mmol/L (133-145); Total Bilirubin 1.88 mg/dL (0.00-1.30); Triglycerides 45 mg/dL; Very Low Density Lipoprotein 9 mg/dL (5-40); cholesterol:hdl ratio screen 2.45
[2024-07-16 06:31] LABS: Absolute Lymphocyte Count 0.95 X10^3/uL (0.83-4.51); Basophil# 0.01 X10^3/uL; Basophil% 0.1 % (0-1); Hematocrit 39.4 % (37-47); Lymphocyte # 0.95 X10^3/ul (0.83-4.51); Lymphocyte % 11.4 % (19-41); Mean Corpuscular Hgb 26.2 pg (27.0-32.0); Mean Corpuscular Volume 79.3 fL (81-99); Mean Platelet Vol. 10.8 fl (6.2-12.0); Monocyte# 0.32 X10^3/uL; Monocyte% 3.9 % (0-10); NRBC Flagged by Analyzer 0 % (0-5); Neutrophil % 84.2 % (47-70); Platelet Count 259 K/mm3 (150-450); RBC Distribution Width CV 15.1 % (11.6-14.6); RBC Distribution Width SD 43.5 fl (35.1-43.9); Red Blood Count 4.97 M/mm3 (4.2-5.4); White Blood Count 8.3 K/mm3 (4.4-11.0)
[2024-07-16 06:58] LABS: Bedside Glucose 115 mg/dL (74-106)
[2024-07-16 07:30] VITALS: BP 117/71; PULSE 64; RESP 16; TEMP 35.9; O2SAT 100
[2024-07-16] MEDS: Aspirin 81 MG TAB.CHEW PO (09:13)
[2024-07-16 09:15] VITALS: BP 147/83; PULSE 84; RESP 14; TEMP 36.3; O2SAT 100
--- NOTE | 2024-07-16 09:15 | MRI_ITS ---
PROCEDURE: BRAIN WITHOUT CONTRAST (MRIBR), 07/16/2024 REASON FOR EXAM: TIA/CVA COMPARISON: 07/15/2024. TECHNIQUE: Multisequence multiplanar MRI brain was performed without intravenous contrast. Contrast: None. FINDINGS: Cerebrum: No acute infarct, visible mass, or definite acute intracranial hemorrhage. Mild/moderate cerebral volume loss. Trace supratentorial white matter presumed chronic microvascular ischemic changes. Susceptibility effect in the basal ganglia likely related to calcifications on previous CT. Cerebellum: Unremarkable. Brainstem: Unremarkable. Ventricles/extra-axial spaces: Age appropriate appearance. Major flow voids: Better evaluated on recent CTA. Paranasal sinuses: Unremarkable. Scalp/calvarium: Unremarkable. Orbits: Bilateral cataract surgery. Other: Cervical spinal degenerative changes at C1-C2.. MRI/Brain without Contrast IMPRESSION: 1. No specific evidence of an acute intracranial process. 2. Additional description as above. Reading Location: [id number]
--- NOTE | 2024-07-16 11:45 | CASEMGMT ---
Social Work Per physician, stroke ruled out. PHQ9 not completed. MELLISA Holcomb
[2024-07-16 11:59] LABS: Bedside Glucose 136 mg/dL (74-106)
[2024-07-16 13:15] VITALS: BP 131/69; PULSE 74; RESP 16; TEMP 36.1; O2SAT 100
--- NOTE | 2024-07-16 14:46 | DCINST_ITS ---
Discharge Instructions Diet Discharge Diet: No restrictions DC O2, CPAP, BIPAP needs Home O2 Discharge instructions: No Dressing / Incision Discharge Activity: No Restrictions Follow Up Care Test Results: Test results from this visit will be discussed in further detail at your follow- up appointment, if applicable. Discharge Plan Admission Admit Date/Time: 07/15/24 20:57 Primary Reason for Your Visit: dizziness Attending Provider: Greg Matute Primary Care Provider: Elier Lindsey Consulting Providers: Franck Dupree; Halima Vargas; Rody Johnson; Nancy Cruz; Nenita Ardon; Armando Phan; Ekta Israel; Perez Fischer; Ed Loredo; Douglas Christianson; Diana Hicks; Ty Del Cid; Danelle Abrams; Tahir Cevallos; Juan Adhikari; Preet Bernard; Ann Tavera; Ramiro Mcgraw; Genie Lloyd; Dillan Quarles; Laura Montes De Oca Discharge Orders/Prescriptions Prescriptions: Continued metformin 850 mg tablet 850 mg PO Q12H lisinopril 5 mg tablet 5 mg PO DAILY Patient Comments: PT TAKES AT BEDTIME Jardiance 10 mg tablet 10 mg PO DAILY simvastatin 20 mg tablet 20 mg PO QHS timolol maleate 0.5 % drops 1 drp LEFT EYE Q12H thiamine HCl (vitamin B1) [Vitamin B-1] 250 mg tablet 250 mg PO DAILY pyridoxine (vitamin B6) [Vitamin B-6] 100 mg tablet 100 mg PO DAILY mecobalamin (vitamin B12) 1,000 mcg tablet,chewable 1,000 mcg PO DAILY calcium carbonate-vitamin D3 [Calcium 600 + D(3)] 600 mg-5 mcg (200 unit) tablet 2 tab PO DAILY cholecalciferol (vitamin D3) [D3 DOTS] 50 mcg (2,000 unit) tablet 50 mcg PO DAILY omega 9-wur-uyx-fish oil [Fish Oil] 300-1,000 mg capsule 1 cap PO DAILY green tea leaf extract 500 mg capsule 400 mg PO DAILY magnesium oxide [MagOx] 400 mg (241.3 mg magnesium) tablet 400 mg PO DAILY zinc gluconate 50 mg tablet 50 mg PO DAILY Referrals / Follow Up: Elier Lindsey MD [Primary Care Provider] - Disposition Disposition (needs filled in before D/C Order can be placed): Home, Self Care
--- NOTE | 2024-07-16 14:46 | PCM.DC.SUM ---
Providers Date of Admission: 07/15/24 Date of Discharge: 07/16/24 Primary Care Physician: Dr. Elier Lindsey MD Consultations 07/15/24 21:50 Consult: Tele-Neurology Routine Consulting Provider: [facility] Reason for Consult: Acute Ischemic Stroke/TIA EMERGENT Consult: No MD Notified: Yes Date Notified: 07/16/24 Time Notified: 00:51 Method of Notification: Answering Service Nursing Unit Staff Notify [facility] of Tele-Neurology Consult: Yes Reason For Visit: VERTIGO/DIZZINESS, TIA/CVA Diagnosis Discharge Diagnosis (1) Vertigo of central origin: Status: Acute Code(s): H81.4 - Vertigo of central origin Medications at Discharge Home Medications calcium 600 mg (as carbonate)-vitamin D3 5 mcg (200 unit) tablet (Calcium 600 + D(3)) 2 tab PO DAILY 07/15/24 cholecalciferol (vitamin D3) 50 mcg (2,000 unit) tablet (D3 DOTS) 50 mcg PO DAILY 07/15/24 empagliflozin 10 mg tablet (Jardiance) 10 mg PO DAILY 07/15/24 green tea leaf extract 500 mg capsule 400 mg PO DAILY 07/15/24 lisinopril 5 mg tablet 5 mg PO DAILY 07/15/24 magnesium oxide 400 mg (241.3 mg magnesium) tablet (MagOx) 400 mg PO DAILY 07/15/24 mecobalamin (vitamin B12) 1,000 mcg chewable tablet 1,000 mcg PO DAILY 07/15/24 metformin 850 mg tablet 850 mg PO Q12H 07/15/24 omega 8-wgv-tti-fish oil 300 mg-1,000 mg capsule (Fish Oil) 1 cap PO DAILY 07/15/24 pyridoxine (vitamin B6) 100 mg tablet (Vitamin B-6) 100 mg PO DAILY 07/15/24 simvastatin 20 mg tablet 20 mg PO QHS 07/15/24 thiamine HCl (vitamin B1) 250 mg tablet (Vitamin B-1) 250 mg PO DAILY 07/15/24 timolol maleate 0.5 % eye drops 1 drp LEFT EYE Q12H 07/15/24 zinc gluconate 50 mg tablet 50 mg PO DAILY 07/15/24 Hospital Course Operations None Procedures EKG, Transthoracic echo and - (Chest x-ray, CT brain, CTA head/neck, MRI brain) Summary of Care Provided Minutes Spent on Discharge: 35 Hospital Course: Patient is a 74-year-old female who presented to [facility] ED on 07/15/2024 with double vision and severe dizziness. Short hospital course as noted below. Patient discharged home in stable condition on 07/16. 1. Vertigo, CVA ruled out ? Neurology followed. Presented with acute onset vertigo symptoms with double vision and severe dizziness. CT brain, CTA head/neck and MRI brain unremarkable. Symptoms resolved by hospital day 2. 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 Stable for discharge home on 07/16. Chronic medical conditions: ? Hypertension: Continue home lisinopril. ? Hyperlipidemia: Continue home statin. ? Type 2 diabetes mellitus: Treated with sliding scale insulin with meals while inpatient. Okay to resume home metformin and Jardiance on discharge. ? Glaucoma: Continue home eyedrops. ? History of cervical cancer s/p total abdominal hysterectomy and bilateral salpingo oophorectomy Total clinical time spent by myself addressing the patient's medical issues, reviewing all the data, and collaborating with patient's care team: 35 minutes. Physical Exam Const alert, oriented x3, no apparent distress, average body habitus, healthy appearing and well nourished Constitutional Narrative: Pleasant elderly female, sitting back comfortably in bed, conversing normally, in no acute distress. General Appearance: cooperative, comfortable, well kempt and well developed HEENT normocephalic, head/scalp atraumatic, hearing grossly normal bilaterally, nasal mucous membranes and turbinates normal and moist oral mucous membranes Eyes PERRL, EOMs intact bilaterally and conjunctivae normal Neck full ROM Chest inspection of chest normal Resp normal respiratory effort, normal air movement, no use of accessory muscles and clear to auscultation bilaterally Cardio regular rate, regular rhythm, no murmurs and peripheral pulses 2+ throughout GI normal to inspection, nondistended, normoactive bowel sounds, soft to palpation, non-tender and non-distended Back/Spine normal ROM Extremity normal to inspection, full ROM and no pedal edema Skin no rashes or lesions noted Neuro oriented x3, CN's II-XII intact bilaterally, moves all extremities and no focal motor deficits Speech: speech normal Motor Exam: strength 5/5 throughout Psych mental status grossly normal Weight / BMI Weight Weight: 57.7 kg Body Mass Index (BMI) 21.2 ABG / Lab / Microbiology Data 07/16/24 05:28 07/16/24 05:28 Laboratory: Laboratory Results - last 24 hr 07/15/24 15:45: WBC 6.5, RBC 5.04, Hgb 13.2, Hct 40.1, MCV 79.6 L, MCH 26.2 L, MCHC 32.9, RDW Std Deviation 43.8, RDW Coeff of [place] 15.3 H, Plt Count 244, MPV 10.6, Immature Gran % (Auto) 0.200, Neut % (Auto) 69.1, Lymph % (Auto) 20.3, [place] % (Auto) 8.7, Eos % (Auto) 1.4, Baso % (Auto) 0.3, Absolute Neuts (auto) 4.5, Absolute Lymphs (auto) 1.31, Nucleated RBC % 0, PT 12.9, INR 1.0, APTT 23.0 L, Sodium 134, Potassium 4.4, Chloride 99, Carbon Dioxide 24.1, Anion Gap 11, BUN 16, Creatinine 0.86, Estim Creat Clear Calc 49.81 L, Est GFR (MDRD) Non-Af 70, BUN/Creatinine Ratio 18.9, Glucose 175 H, Calcium 9.8 07/15/24 18:16: POC Glucose 122 H 07/15/24 18:20: WBC 8.2, RBC 5.13, Hgb 13.4, Hct 40.7, MCV 79.3 L, MCH 26.1 L, MCHC 32.9, RDW Std Deviation 43.5, RDW Coeff of [place] 15.1 H, Plt Count 256, MPV 10.5, Immature Gran % (Auto) 0.400, Neut % (Auto) 77.7 H, Lymph % (Auto) 14.9 L, [place] % (Auto) 6.2, Eos % (Auto) 0.6, Baso % (Auto) 0.2, Absolute Neuts (auto) 6.3, Absolute Lymphs (auto) 1.22, Nucleated RBC % 0, PT 12.8, INR 0.9, APTT 22.3 L, Sodium 136, Potassium 4.5, Chloride 101, Carbon Dioxide 23.2, Anion Gap 11, BUN 16, Creatinine 0.83, Estim Creat Clear Calc 51.61, Est GFR (MDRD) Non-Af 73, BUN/Creatinine Ratio 19.8, Glucose 129 H, Hemoglobin A1c 6.5 H, Calcium 10.1, Magnesium 1.8, Troponin T High Sens < 6, TSH 0.983 07/15/24 20:25: Troponin T Hi Sens 2 Hr < 6 07/15/24 22:25: Troponin T Hi Sens 4Hr < 6 07/15/24 22:49: POC Glucose 156 H 07/15/24 23:00: Urine Color Yellow, Urine Clarity Clear, Urine pH 6.0, Ur Specific [place] 1.010, Urine Protein Negative, Urine Glucose (UA) 1000 H, Urine Ketones 15 H, Urine Occult Blood Negative, Urine Nitrite Negative, Urine Bilirubin Negative, Urine Urobilinogen Normal, Ur Leukocyte Esterase Negative, Urine RBC 0 SEEN, Urine WBC 0 SEEN, Ur Squamous Epith Cells 0 SEEN, Urine Bacteria 0 SEEN, Urine Mucus 0 SEEN 07/16/24 05:28: WBC 8.3, RBC 4.97, Hgb 13.0, Hct 39.4, MCV 79.3 L, MCH 26.2 L, MCHC 33.0, RDW Std Deviation 43.5, RDW Coeff of [place] 15.1 H, Plt Count 259, MPV 10.8, Immature Gran % (Auto) 0.400, Neut % (Auto) 84.2 H, Lymph % (Auto) 11.4 L, [place] % (Auto) 3.9, Eos % (Auto) 0.0, Baso % (Auto) 0.1, Absolute Neuts (auto) 7.0, Absolute Lymphs (auto) 0.95, Nucleated RBC % 0, Sodium 140, Potassium 4.5, Chloride 107, Carbon Dioxide 21.6, Anion Gap 12, BUN 15, Creatinine 0.85, Estim Creat Clear Calc 50.67, Est GFR (MDRD) Non-Af 71, BUN/Creatinine Ratio 17.8, Glucose 121 H, Calcium 9.5, Total Bilirubin 1.88 H, AST 20, ALT 16, Alkaline Phosphatase 70, Total Protein 6.6, Albumin 4.0, Globulin 2.6, Albumin/Globulin Ratio 1.5, Triglycerides 45, Cholesterol 143, LDL Cholesterol, Calc 76, VLDL Cholesterol 9, HDL Cholesterol 58, Cholesterol/HDL Ratio 2.45 07/16/24 06:10: POC Glucose 115 H 07/16/24 11:28: POC Glucose 136 H Radiography Diagnostic Testing: Radiology Impression Chest X-Ray 07/15/24 15:42 IMPRESSION: No Acute Findings. Reading Location: [facility] Brain CT 07/15/24 17:59 IMPRESSION: No acute intracranial abnormality; no acute infarct, intracranial hemorrhage or extra-axial collection. Chronic microvascular ischemia and involutional changes. Reading Location: [facility] Head/Neck CTA 07/15/24 17:59 IMPRESSION: Scattered atherosclerotic calcification without high-grade canal stenosis or neural foraminal narrowing. Reading Location: [facility] Echocardiogram 07/15/24 21:50 Interpretation Summary Normal LV size. Left ventricular systolic function is normal. The left ventricular ejection fraction is 70 %. Pulmonary artery systolic pressure is 28 mmHg. Structurally normal valves. Ordering Physician: Laura Montes De Oca Performed By: Raul Cano RCS Brain MRI 07/16/24 09:15 IMPRESSION: 1. No specific evidence of an acute intracranial process. 2. Additional description as above. Reading Location: [id number] D/C Instructions DC O2, CPAP, BIPAP Needs Home O2 Discharge instructions: No Meaningful Use Info Meaningful Use Meaningful Use Diagnoses (Choose all that apply): None applicable Ischemic Stroke Statin Dosing Therapy Reference: STATIN DOSE THERAPY REFERENCE: * Patients > 75 years receive moderate or high dose statin therapy. * Patients 75 years or YOUNGER should receive HIGH intensity statin dose unless contraindicated. You will be required to document reason for non-treatment if statin daily dose does not meet guidelines. HIGH DOSE STATIN THERAPY DAILY Atorvastatin > than or = to 40 mg Rosuvastatin > than or = to 20 mg Amlodipine + Atorvastatin > than or = to 2.5/40 mg Ezetimibe + Simvastatin 10/80 mg Simvastatin 80mg Discharge Plan Admission Admit Date/Time: 07/15/24 20:57 Primary Reason for Your Visit: dizziness Attending Provider: Greg Matute Primary Care Provider: Elier Lindsey Consulting Providers: Franck Dupree; Halima Vargas; Rody Johnson; Nancy Cruz; Nenita Ardon; Armando Phan; Ekta Israel; Perez Fischer; Ed Loredo; Douglas Christianson; Diana Hicks; Ty Del Cid; Danelle Abrams; Tahir Cevallos; Juan Adhikari; Preet Bernard; Ann Tavera; Ramiro Mcgraw; Genie Lloyd; Dillan Quarles; Laura Montes De Oca Discharge Orders/Prescriptions Prescriptions: Continued metformin 850 mg tablet 850 mg PO Q12H lisinopril 5 mg tablet 5 mg PO DAILY Patient Comments: PT TAKES AT BEDTIME Jardiance 10 mg tablet 10 mg PO DAILY simvastatin 20 mg tablet 20 mg PO QHS timolol maleate 0.5 % drops 1 drp LEFT EYE Q12H thiamine HCl (vitamin B1) [Vitamin B-1] 250 mg tablet 250 mg PO DAILY pyridoxine (vitamin B6) [Vitamin B-6] 100 mg tablet 100 mg PO DAILY mecobalamin (vitamin B12) 1,000 mcg tablet,chewable 1,000 mcg PO DAILY calcium carbonate-vitamin D3 [Calcium 600 + D(3)] 600 mg-5 mcg (200 unit) tablet 2 tab PO DAILY cholecalciferol (vitamin D3) [D3 DOTS] 50 mcg (2,000 unit) tablet 50 mcg PO DAILY omega 2-prf-uxo-fish oil [Fish Oil] 300-1,000 mg capsule 1 cap PO DAILY green tea leaf extract 500 mg capsule 400 mg PO DAILY magnesium oxide [MagOx] 400 mg (241.3 mg magnesium) tablet 400 mg PO DAILY zinc gluconate 50 mg tablet 50 mg PO DAILY Referrals / Follow Up: Elier Lindsey MD [Primary Care Provider] - Disposition Disposition (needs filled in before D/C Order can be placed): Home, Self Care Charges/Coding Visit Charges Inpatient E&M: 64586 Disch Hosp >30min
--- NOTE | 2024-07-16 15:56 | CASEMGMT ---
Patient has order for discharge. Therapy recommending outpatient vestibular therapy, script received. RN CM in to discuss needs at discharge. RN CM discussed outpatient vestibular therapy. Patient would like to schedule at facility of choice. Patient denies further need or concerns. Patient had no further questions or concerns. RN STEFFANY provided script in discharge packet with [facility] information.
--- NOTE | 2024-07-16 15:58 | CASEMGMT ---
Social Work SW met with pt and assisted in completing HCPOA naming her Chaitanya. Pt choosing not to complete living will as she would like all measures. Copy placed on pt chart and original given to pt. Pedro Holcomb
[2024-07-16 16:04] VITALS: BP 130/72; PULSE 68; RESP 16; TEMP 35.7; O2SAT 100
--- NOTE | 2024-07-16 16:40 | PHA.DC.MR.R ---
Pharmacy OR Med Reconciliation Pharmacy Service has performed discharge medication reconciliation for this patient. The patient's discharge medication list was reviewed for discrepancies and discrepancies were resolved. Medications at Discharge Home Medications calcium 600 mg (as carbonate)-vitamin D3 5 mcg (200 unit) tablet (Calcium 600 + D(3)) 2 tab PO DAILY supplement 07/15/24 cholecalciferol (vitamin D3) 50 mcg (2,000 unit) tablet (D3 DOTS) 50 mcg PO DAILY vitamin 07/15/24 empagliflozin 10 mg tablet (Jardiance) 10 mg PO DAILY diabetes 07/15/24 green tea leaf extract 500 mg capsule 400 mg PO DAILY supplement 07/15/24 lisinopril 5 mg tablet 5 mg PO DAILY blood pressure 07/15/24 magnesium oxide 400 mg (241.3 mg magnesium) tablet (MagOx) 400 mg PO DAILY supplement 07/15/24 mecobalamin (vitamin B12) 1,000 mcg chewable tablet 1,000 mcg PO DAILY vitamin 07/15/24 metformin 850 mg tablet 850 mg PO Q12H diabetes 07/15/24 omega 6-adk-pna-fish oil 300 mg-1,000 mg capsule (Fish Oil) 1 cap PO DAILY supplement 07/15/24 pyridoxine (vitamin B6) 100 mg tablet (Vitamin B-6) 100 mg PO DAILY vitamin 07/15/24 simvastatin 20 mg tablet 20 mg PO QHS cholesterol 07/15/24 thiamine HCl (vitamin B1) 250 mg tablet (Vitamin B-1) 250 mg PO DAILY vitamin 07/15/24 timolol maleate 0.5 % eye drops 1 drp LEFT EYE Q12H eye health 07/15/24 zinc gluconate 50 mg tablet 50 mg PO DAILY supplement 07/15/24
--- NOTE | 2024-07-16 21:55 | STROKE.CONS ---
Assessment and Plan: Stroke Assessment/Plan NASEEM POLLACK is a 74 F with a history of DM2 who presents for evaluation of vertigo. Neurological examination shows NIH 0. Patient states her vertigo is resolved. Neuroimaging shows MRI wnl, no central cause of her vertigo. She described it as her neck hurting feeling tight then suddenly felt dizzy. Dx: Cervicogenic Vertigo We discussed stretching the neck. IF sx recurs then talk to PCP about referral to cervicogenic rehab and possible botox. No further stroke workup. HPI Consult Data Date of Consult: 07/16/24 HPI Narrative HPI Narrative: NASEEM POLLACK, is a 74 F who presents [facility] Medical History (Updated 07/15/24 @ 21:[address] Laura Montes De Oca MD) History of cervical cancer CKD (chronic kidney disease), stage II HLD (hyperlipidemia) Glaucoma Type 2 diabetes mellitus with hyperglycemia Home Medications ?Medication ?Instructions ?Recorded ?Last Taken ?Type calcium 600 mg (as 2 tab PO DAILY supplement 07/15/24 Unknown History carbonate)-vitamin D3 5 mcg (200 unit) tablet (Calcium 600 + D(3)) cholecalciferol (vitamin D3) 50 50 mcg PO DAILY vitamin 07/15/24 Unknown History mcg (2,000 unit) tablet (D3 DOTS) empagliflozin 10 mg tablet 10 mg PO DAILY diabetes 07/15/24 Unknown History (Jardiance) green tea leaf extract 500 mg 400 mg PO DAILY supplement 07/15/24 Unknown History capsule lisinopril 5 mg tablet 5 mg PO DAILY blood pressure 07/15/24 Unknown History magnesium oxide 400 mg (241.3 mg 400 mg PO DAILY supplement 07/15/24 Unknown History magnesium) tablet (MagOx) mecobalamin (vitamin B12) 1,000 1,000 mcg PO DAILY vitamin 07/15/24 Unknown History mcg chewable tablet metformin 850 mg tablet 850 mg PO Q12H diabetes 07/15/24 Unknown History omega 1-tfy-ade-fish oil 300 1 cap PO DAILY supplement 07/15/24 Unknown History mg-1,000 mg capsule (Fish Oil) pyridoxine (vitamin B6) 100 mg 100 mg PO DAILY vitamin 07/15/24 Unknown History tablet (Vitamin B-6) simvastatin 20 mg tablet 20 mg PO QHS cholesterol 07/15/24 Unknown History thiamine HCl (vitamin B1) 250 mg 250 mg PO DAILY vitamin 07/15/24 Unknown History tablet (Vitamin B-1) timolol maleate 0.5 % eye drops 1 drp LEFT EYE Q12H eye health 07/15/24 Unknown History zinc gluconate 50 mg tablet 50 mg PO DAILY supplement 07/15/24 Unknown History Allergy/AdvReac Type Severity Reaction Status Date / Time lincomycin Allergy Severe Anaphylaxis Verified 07/15/24 15:42 sulfamethoxazole (From Allergy Severe Swelling Verified 07/15/24 15:42 Bactrim) trimethoprim (From Bactrim) Allergy Severe Swelling Verified 07/15/24 15:42 iodine Allergy Intermediate Hives Verified 07/15/24 15:42 morphine AdvReac Other Verified 07/15/24 15:42 Family History (Updated 07/15/24 @ 21:[address] Laura Montes De Oca MD) Father CAD (coronary artery disease) Heart disease Hypertension Myocardial infarction Mother Lewy body dementia CVA (cerebral vascular accident) Glaucoma Family History no significant family his Surgical History (Updated 07/15/24 @ 21:[address] Laura Montes De Oca MD) History of eye surgery History of total left hip replacement History of arthroscopy of right knee History of total abdominal hysterectomy and bilateral salpingo-oophorectomy History of tonsillectomy and adenoidectomy Social History (Updated 07/15/24 @ 21:[address] Laura Montes De Oca MD) household members: spouse Smoking Status: Never smoker alcohol intake: never substance use type: does not use Vital Signs Vital Signs Vital Signs: 07/15/24 22:00 07/16/24 01:58 07/16/24 06:00 Temperature 96.6 F L 96.5 F L Temperature Source Temporal Temporal Pulse Rate 77 70 Respiratory Rate 18 18 Respiratory Effort Normal Non-Labored Respiratory Depth Normal Respiratory Pattern Normal Blood Pressure 125/67 H 114/64 Blood Pressure Mean 86 80 Blood Pressure Source Monitor Monitor Blood Pressure Position Semi-Fowlers Semi-Fowlers Blood Pressure Location Right Arm Left Arm Pulse Ox 96 99 Oxygen Delivery Method Room Air Room Air Room Air 07/16/24 07:30 07/16/24 09:15 07/16/24 09:20 Temperature 96.6 F L 97.4 F L Temperature Source Temporal Temporal Pulse Rate 64 84 Respiratory Rate 16 14 Respiratory Effort Normal Non-Labored Respiratory Depth Normal Respiratory Pattern Normal Blood Pressure 117/71 147/83 H Blood Pressure Mean 86 104 Blood Pressure Source Monitor Blood Pressure Position Semi-Fowlers Blood Pressure Location Right Arm Pulse Ox 100 100 Oxygen Delivery Method Room Air Room Air Room Air 07/16/24 13:15 07/16/24 16:04 Temperature 97.0 F L 96.2 F L Temperature Source Temporal Temporal Pulse Rate 74 68 Respiratory Rate 16 16 Respiratory Effort Respiratory Depth Respiratory Pattern Blood Pressure 131/69 H 130/72 H Blood Pressure Mean 89 91 Blood Pressure Source Blood Pressure Position Blood Pressure Location Pulse Ox 100 100 Oxygen Delivery Method Room Air Room Air Weight Weight: 57.7 kg Body Mass Index (BMI) 21.2 EEG Results Procedure Details EEG Procedure Details: NASEEM POLLACK is a 74 year old F with a past medical history of , who presents for evaluation of Electroencephalogram on DATE at TIME Lab / Micro Data 07/16/24 05:28 07/16/24 05:28 Labs: Laboratory Results - last 24 hr 07/15/24 18:20: Hemoglobin A1c 6.5 H, Magnesium 1.8, TSH 0.983 07/15/24 22:25: Troponin T Hi Sens 4Hr < 6 07/15/24 22:49: POC Glucose 156 H 07/15/24 23:00: Urine Color Yellow, Urine Clarity Clear, Urine pH 6.0, Ur Specific [place] 1.010, Urine Protein Negative, Urine Glucose (UA) 1000 H, Urine Ketones 15 H, Urine Occult Blood Negative, Urine Nitrite Negative, Urine Bilirubin Negative, Urine Urobilinogen Normal, Ur Leukocyte Esterase Negative, Urine RBC 0 SEEN, Urine WBC 0 SEEN, Ur Squamous Epith Cells 0 SEEN, Urine Bacteria 0 SEEN, Urine Mucus 0 SEEN 07/16/24 05:28: WBC 8.3, RBC 4.97, Hgb 13.0, Hct 39.4, MCV 79.3 L, MCH 26.2 L, MCHC 33.0, RDW Std Deviation 43.5, RDW Coeff of [place] 15.1 H, Plt Count 259, MPV 10.8, Immature Gran % (Auto) 0.400, Neut % (Auto) 84.2 H, Lymph % (Auto) 11.4 L, [place] % (Auto) 3.9, Eos % (Auto) 0.0, Baso % (Auto) 0.1, Absolute Neuts (auto) 7.0, Absolute Lymphs (auto) 0.95, Nucleated RBC % 0, Sodium 140, Potassium 4.5, Chloride 107, Carbon Dioxide 21.6, Anion Gap 12, BUN 15, Creatinine 0.85, Estim Creat Clear Calc 50.67, Est GFR (MDRD) Non-Af 71, BUN/Creatinine Ratio 17.8, Glucose 121 H, Calcium 9.5, Total Bilirubin 1.88 H, AST 20, ALT 16, Alkaline Phosphatase 70, Total Protein 6.6, Albumin 4.0, Globulin 2.6, Albumin/Globulin Ratio 1.5, Triglycerides 45, Cholesterol 143, LDL Cholesterol, Calc 76, VLDL Cholesterol 9, HDL Cholesterol 58, Cholesterol/HDL Ratio 2.45 07/16/24 06:10: POC Glucose 115 H 07/16/24 11:28: POC Glucose 136 H Imaging Radiology Impression Echocardiogram 07/15/24 21:50 Interpretation Summary Normal LV size. Left ventricular systolic function is normal. The left ventricular ejection fraction is 70 %. Pulmonary artery systolic pressure is 28 mmHg. Structurally normal valves. Ordering Physician: Laura Montes De Oca Performed By: Raul Cano RCS Brain MRI 07/16/24 09:15 IMPRESSION: 1. No specific evidence of an acute intracranial process. 2. Additional description as above. Reading Location: [id number] NIHSS NIHSS Nursing Documentation NIHSS Nursing Documentation: NIHSS: Ischemic Stroke/TIA Start: 07/15/24 21:50 Text: For PCU Patients: NIH and Neuro Check every 4 Status: Discharge hours, PRN and with change in RN caregiver. Freq: [id number] Protocol: Activity Type Activity Date Activity User E-sign Co-sign Detail Recorded Client Recorded Date Recorded By Document 07/16/24 13:15 [facility] 07/16/24 16:00 07/16/24 13:15 NIH Stroke Scale [NIHSS] A score of 0 is normal or asymptomatic . Total possible score is 42. Inpatient: RN or Physician to activate a stroke alert for onset of new stroke symptoms or with NIHSS increase >/= 3 points. Following change in neurological status, NIHSS will be performed per physician order or more frequently PRN. -1a. Level of Consciousness 0 - Alert; keenly responsive -1b. LOC Questions 0 - Answers BOTH questions correctly -1c. LOC Commands 0 - Performs BOTH tasks correctly -2. Best Gaze 0 - Normal -3. Visual 0 - No visual loss -4. Facial Palsy 0 - Normal symmetrical movements -5a. Left Arm 0 - No drift; arm holds 90 ( or 45) degrees for full 10 seconds -5b. Right Arm 0 - No drift; arm holds 90 ( or 45) degrees for full 10 seconds -6a. Left Leg 0 - No drift; leg holds 30- degree position for full 5 seconds -6b. Right Leg 0 - No drift; leg holds 30- degree position for full 5 seconds -7. Limb Ataxia 0 - Absent -8. Sensory 0 - Normal; no sensory loss -9. Best Language 0 - No aphasia; normal -10. Dysarthria 0 - Normal -11. Extinction and Inattention 0 - No abnormality -Total 0 Query Text:A score of 0 is normal or asymptomatic. Total possible score is 42 . ED: Notify Physician for NIHSS increase by > / = 3 points. Inpatient: RN or Physician to activate a stroke alert for NIHSS increase of > / = 3 points. Coma Scale [Assess] -Eye Opening Spontaneous -Motor Obeys Commands -Verbal Oriented [Total] -Coma Scale Total 15
== END 2024-07-16 15:24 | disposition home or self-care (01) ==
LOC: ED 20:52 → PCU 21:28
PROVIDERS: Admitting Provider Family Medicine; Emergency Provider Emergency Medicine; PCP Family Medicine; Visit Provider Hospitalist
DX: H81.4 Vertigo of central origin (principal); E11.39 Type 2 diabetes mellitus with other diabetic ophthalmic complication; E11.65 Type 2 diabetes mellitus with hyperglycemia; E11.22 Type 2 diabetes mellitus with diabetic chronic kidney disease; H40.9 Unspecified glaucoma; Z79.84 Long term (current) use of oral hypoglycemic drugs; E78.5 Hyperlipidemia, unspecified; Z82.49 Family history of ischemic heart disease and other diseases of the circulatory system; H53.8 Other visual disturbances; R41.0 Disorientation, unspecified; I12.9 Hypertensive chronic kidney disease with stage 1 through stage 4 chronic kidney disease, or unspecified chronic kidney disease; R26.2 Difficulty in walking, not elsewhere classified; N18.2 Chronic kidney disease, stage 2 (mild); Z90.710 Acquired absence of both cervix and uterus; Z85.41 Personal history of malignant neoplasm of cervix uteri; Z86.16 Personal history of COVID-19; R29.700 NIHSS score 0; Z79.899 Other long term (current) drug therapy
CPT/HCPCS: 36415; 70450; 70496; 70498; 70551; 71045; 80048; 80053; 80061; 81001; 82962; 83036; 83735; 84443; 84484; 85025; 85610; 85730; 92610; 93005; 93306; 94668; 96361; 96374; 96375; 97161; 97166; 99221; 99285; Q9967; A4216; G0378

== ENCOUNTER → 2024-11-19 | Outpatient (CLI) | payer MEDICARE, OTHER, SELFPAY ==
--- NOTE | 2024-11-19 10:53 | BI_ITS ---
EXAM: SCRN MAMM (CAD)W/MARICARMEN BILAT DATE: 11/19/2024 CLINICAL HISTORY: F, Age 74 y/o , SCREENING Aunt with breast cancer. TECHNIQUE: Procedure Code: [id number] Modality: MG Procedure: SCRN MAMM (CAD)W/MARICARMEN BILAT COMPARISON: Prior exam(s) dated August 01, 2023.. FINDINGS: TISSUE DENSITY: The breasts are heterogeneously dense, which may obscure small masses. Bilateral Breast Mammographic Findings: No significant masses, calcifications or other abnormalities are identified. No suspicious masses, areas of developing architectural distortion, or suspicious calcifications. There has been no significant interval change. BI/SCRN MAMM (CAD)W/MARICARMEN BILAT IMPRESSION: Stable screening bilateral mammogram. OVERALL FINAL ASSESSMENT BI-RADS 1: NEGATIVE. RECOMMENDATION: Routine annual follow-up in 1 Year A letter with findings and recommendations will be mailed to the patient. Reading Location: [place] [id number]
== END | disposition home or self-care (01) ==
LOC: OPBI 10:52
PROVIDERS: PCP Family Medicine; Referring Provider Family Medicine; Visit Provider Family Medicine
DX: Z12.31 Encounter for screening mammogram for malignant neoplasm of breast (principal); Z80.3 Family history of malignant neoplasm of breast
CPT/HCPCS: 77063; 77067